=== PATIENT | female | born 1980 | race Hispanic/Latino ===

== ENCOUNTER 2017-08-29 23:46 | Inpatient (IN) | payer OTHER ==
[~2017-08-29] VITALS: Ht 162.6 cm; Wt 79.8 kg
--- NOTE | 2017-08-29 23:57 | ED INFLUENZA/URI COMPLAINT ---
History of Present Illness General Chief Complaint: Fever Stated Complaint: FLU LIKE SYMTPOMS, 33WEEKS Source: patient, family Exam Limitations: no limitations Vital Signs & Intake/Output Vital Signs & Intake/Output Vital Signs Date Time Temp Pulse Resp B/P B/P Pulse O2 O2 Flow FiO2 Mean Ox Delivery Rate 08/30 0050 98.8 128 18 100/50 97 08/29 2348 99.0 128 22 112/56 99 Room Air Room Air ED Intake and Output 08/30 0000 08/29 1200 Intake Total 0 Output Total Balance 0 Intake, Oral 0 Patient 176 lb Weight Allergies Coded Allergies: No Known Allergies (08/29/17) Reconcile Medications No Known Home Medications Triage Note: PT BROUGHT TO ED FROM CBC TO R/U FLU. PT STATES SHE HAS HAD FEVERS, AND BODY ACHES SINCE 0900 TODAY. PT IS 33 WEEKS , AND HAD CONTRACTIONS EARLIER TODAY. DENIES BLOOD OR AND CURRANT CONTRACTIONS Triage Nurses Notes Reviewed? yes Onset: Abrupt Duration: day(s): (3) Timing: recent history Severity: moderate, severe No Modifying Factors: none Associated Symptoms: fever, flank pain, dysuria, urinary frequency : Yes Patient currently breastfeeds: No HPI: This is a 37-year-old female at 33 weeks gestation who presents from labor and delivery with her for chief complaint of cough, fever, body aches which started on August 26. At labor and delivery she was determined not to be active labor and was sent here for evaluation for influenza. She was started on azithromycin yesterday and took a dose today as well. She denies any sick contacts or travel. Patient complains of diffuse abdominal pain, myalgias, cough. No productive sputum. She states her urine has a bad smell to it. Past History Travel History Traveled to [place] past 21 day No Medical History Any Pertinent Medical History? 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 No Review of Systems Review of Systems Constitutional: Reports: chills, fever, malaise, weakness. EENTM: Reports: throat pain. Respiratory: Reports: cough. Cardiovascular: Denies: chest pain, palpitations. GI: Reports: abdominal pain, nausea. Denies: vomiting. Genitourinary: Reports: discharge. Musculoskeletal: Reports: back pain. Skin: Reports: no symptoms. Neurological/Psychological: Denies: anxiety, confusion. Hematologic/Endocrine: Denies: bruising, bleeding, polyuria, polydipsia. Immunologic/Allergic: Denies: splenectomy. All Other Systems: Reviewed and Negative Physical Exam Physical Exam General Appearance: well developed/nourished, alert, awake, anxious, mild distress, moderate distress Head: atraumatic, normal appearance Eyes: Bilateral: normal appearance, PERRL, EOMI. Ears, Nose, Throat: normal ENT inspection, moist mucous membrane, hearing grossly normal, Tympanic normal Neck: normal inspection, supple, full range of motion Respiratory: normal breath sounds, chest non-tender, no respiratory distress Cardiovascular: tachycardia Peripheral Pulses: 2+ radial (R), 2+ radial (L) Gastrointestinal: soft, gravid Back: normal inspection, normal range of motion, CVA tenderness (R), CVA tenderness (L) Extremities: normal inspection, no edema Neurologic/Psych: no motor/sensory deficits, awake, alert, oriented x 3 Skin: intact, normal color, warm/dry Core Measures Sepsis Present: No Sepsis Focused Exam Completed? No Progress Differential Diagnosis: pneumonia, INFLUENZA, VIRAL SYNDROME Plan of Care: Orders Procedure Date/time Status Regular Diet 08/30 B Active ED Holding Orders 08/30 134 Active Admit to inpatient 08/30 134 Active Vital Signs 08/30 134 Active Code Status 08/30 134 Active BLOOD CULTURE 08/30 0106 Active CULTURE,URINE 08/30 5 Active URINALYSIS 08/30 5 Complete COMPREHENSIVE METABOLIC PANEL 08/30 5 Complete CBC WITHOUT DIFFERENTIAL 08/30 5 Complete RAPID VIRAL INFLUENZA A 08/293 Complete Laboratory Tests 08/30/17 0032: Anion Gap 8, Estimated GFR > 60, BUN/Creatinine Ratio 17.5, Glucose 105 H, Calcium 8.4, Total Bilirubin 0.4, AST 15, ALT 25, Alkaline Phosphatase 124, Total Protein 5.9 L, Albumin 3.0 L, Globulin 2.9, Albumin/Globulin Ratio 1.0 L, CBC w Diff MAN DIFF ORDERED, RBC 3.23 L, MCV 85.4, MCH 28.8, RDW 14.4, MPV 7.9, Gran % 95.6 H, Lymphocytes % 3.0 L, Monocytes % 1.3 L, Eosinophils % 0.1 , Basophils % 0, Absolute Granulocytes 11.0 H, Segmented Neutrophils 82 H, Band Neutrophils 15 H, Absolute Lymphocytes 0.3 L, Lymphocytes 1 L, Monocytes 1 L, Absolute Monocytes 0.1, Absolute Eosinophils 0, Absolute Basophils 0, Metamyelocytes 1, Platelet Estimate ADEQUATE, Ovalocytes 1+, PUBS MCHC 33.8 08/30/17 0005: Urine Color YEL, Urine Clarity HAZY H, Urine pH 7.0, Ur Specific [place] 1.010, Urine Protein NEG, Urine Ketones NEG, Urine Nitrite POS H, Urine Bilirubin NEG, Urine Urobilinogen 0.2, Ur Leukocyte Esterase MOD H, Ur Microscopic SEDIMENT EXAMINED, Urine RBC RARE, Urine WBC 15-25 H, Ur Epithelial Cells RARE, Urine Bacteria MANY H, Urine Hemoglobin NEG, Urine Glucose NEG Microbiology 08/30 0125 BLOOD: Blood Culture - RECD 08/30 0106 BLOOD: Blood Culture - ORD 08/30 0005 URINE ROUT: Urine Culture - RECD 08/29 4707 NASOPHARYN: Influenza Virus A & B Rapid Smear - COMP influenza swab negative. patient with clinical exam consistent with pyelonephiritis, b/l flank pain, fever, positive u/a. d/w dr jenkins. patient to be admitted for inpatient management of acute pyelonephritis. Initial ED EKG: none Departure Departure Time of Disposition: 134 Disposition: STILL A PATIENT Condition: Stable Clinical Impression Primary Impression: Fever Referrals: Traci KHOURY,Cecille Sanders (PCP/Family) Departure Forms: Customer Survey General Discharge Information Prescriptions: Current Visit Scripts No Known Home Medications Admission Note Spoke With: Rios Ying MD Documentation of Exam: Documentation of any treatments & extenuating circumstances including Concerns Regarding Discharge (functional status, medication knowledge or non-compliance, living conditions, etc.) that warrant an admission rather than observation: [IV FLUIDS, ANTIPYRETICS, IV ABX, F/U BLOOD AND URINE CULTURES, MONITOR I/O, PAIN CONTROL]
[2017-08-30 00:50] VITALS: BP 100/50
[2017-08-30 00:52] LABS: ABSOLUTE BASOPHIL COUNT 0 /CUMM (0.0-0.2); ABSOLUTE EOSINOPHIL COUNT 0 /CUMM (0.0-0.7); ABSOLUTE LYMPH COUNT 0.3 /CUMM (1.2-3.4); ABSOLUTE MONOCYTE COUNT 0.1 /CUMM (0.10-0.60); BASOPHIL % 0 % (0.0-2.0); EOSINOPHIL % 0.1 % (0-5); GRANULOCYTE % 95.6 % (42.2-75.2); HEMATOCRIT 27.6 % (37-47); MEAN CORPUSCULAR HGB 28.8 PG (27.0-31.0); MEAN CORPUSCULAR HGB CONC 33.8 G/DL (33.0-37.0); MEAN CORPUSCULAR VOLUME 85.4 FL (81.0-99.0); MEAN PLATELET VOLUME 7.9 FL (7.4-10.4); PLATELET COUNT 318 /CUMM (130-400); RBC DISTRIBUTION WIDTH 14.4 % (11.5-14.5); RED BLOOD CELL CT 3.23 /CUMM (4.20-5.40); WHITE BLOOD CELL COUNT 11.6 /CUMM (4.8-10.8)
--- NOTE | 2017-09-04 13:15 | Surgical Discharge Summary ---
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 Maltese ETOH Use: denies use Review of Systems: Chills, shortness of breath, fever, flank pain Hospital Course Course Attending Physician: Rios Ying MD Primary Care Physician: Cecille Aviles MD Hospital Course: The patient was seen in the childbirth center for possible -induced hypertension. She complained of chills and body aches and low-grade fever. Obstetrically she was stable. She was sent to the emergency room for probable influenza virus. She was examined in the emergency room at and the evaluation noted the patient to have pyelonephritis with flank pain and fever. Her white blood cell count was normal and she was started on Rocephin 1 g IV. She was then sent to the childbirth center for continued management. She did well overnight and felt better in the morning. Of note, her grandfather during her admission and she desired to be discharged early the same day. 12 hours later she was given a another dose of Rocephin 1 g IV and then discharged home on Macrobid. Allergies: Coded Allergies: No Known Allergies (08/29/17) Disposition Summary Disposition Principal Diagnosis: Pyelonephritis Additional Diagnosis: Discharge Disposition: home or self care Discharge Instructions General Discharge Information Code Status: Full Code Patient's Diet: Regular Patient's Activity: Pelvic rest Follow-Up Instructions/Appts: 3 day follow-up Dr. Ying
== END 2017-08-30 15:00 | DRG 781 ==
LOC: ERH 23:46 → ERHI 08-30 01:34 → ENRESERV 08-30 02:00 → GNO 08-30 02:20 → CMPBEDREQ 08-30 08:19 → GNO 08-30 15:00
PROVIDERS: Emergency Medicine
DX: O23.03 Infections of kidney in pregnancy, third trimester (principal); Z3A.33 33 weeks gestation of pregnancy
CPT/HCPCS: GNOS; 81001; 87040; 87086; 87804; 87804-59; J0131; J0696; J1200; J7120

== ENCOUNTER 2017-09-29 05:54 | Inpatient (IN) | payer OTHER ==
[~2017-09-29] VITALS: Ht 165.1 cm; Wt 81.6 kg
--- NOTE | 2017-09-29 08:28 | History & Physical ---
General Information and HPI MD Statement: I have seen and personally examined DANIEL GARSIA and documented this H&P. The patient is a 37 year old female at [37] weeks and [5] days gestation who presented with a chief complaint of [labor]. History of Present Illness: This patient is a 37-year-old 3 para 2 LMP 01/08/2017 EDC 10/15/2017 at 37 weeks and 5 days who presents to labor and delivery for the second time this morning complaining of strong uterine contractions and vaginal bleeding. care is remarkable for 2 previous , first for breech and repeat for failed . Her medical history is significant for situs inversus; her 2 previous children were normal and she refuses genetic counseling with this . 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 EENTM: Reports: no symptoms. Cardiovascular: Reports: no symptoms. Respiratory: Reports: no symptoms. GI: Reports: no symptoms. Genitourinary: Reports: see HPI. Musculoskeletal: Reports: no symptoms. Skin: Reports: no symptoms. Neurological/Psychological: Reports: no symptoms. Hematologic/Endocrine: Reports: no symptoms. Immunologic/Allergic: Reports: no symptoms. All Other Systems: Reviewed and Negative Exam & Diagnostic Data Obstetric Exam Wgt Gained During : 40 pounds Pelvimetry: Gynecoid Dilation (cm): 1 Effacement (%): 0 Station: -3 Membranes: intact Fluid: unknown Fundal Height (cm): 40 Multiple Gestation? No Contractions: Every 2 minutes Infant #1 - FHR Baseline: 130 Category: 1 Estimated Weight: 7 pounds Presentation: Cephalic Patient for Induction? No Physical Exam: HEENT: Normocephalic atraumatic Chest: Clear to auscultation bilaterally Cardiovascular: Normal S1, S2 Abdomen: Gravid, cephalic, estimated weight 7 pounds Pelvic: Negative long posterior Extremities: No clubbing cyanosis or edema Neurologic nonfocal Labs Blood Type & Rh: A positive Antibody Screen: Negative Hct/Hgb & Platelets #1: [id number] Hct/Hgb & Platelets #2: [id number] Rubella: Immune VDRL #1: Nonreactive VDRL #2: Nonreactive HbsAg: Negative HIV #1: Negative HIV #2 Units 1 Hr P Group B Strep: Negative Initial Ultrasound: Within normal limits Anatomy Ultrasound: Normal Ultrasound for EFW: 5-09/02 Genetic Testing: Not applicable Last 24 Hrs of Labs/Randy: Microbiology 09/29 0750 URINE ROUT: Urine Culture - COLB Assessment/Plan Assessment/Plan: Previous 2 prodromal labor Plan: Repeat section As Ranked By This Provider Problem List: 1. Previous section Core Measures Venous Thromboembolism VTE Risk Factors / No Mechanical VTE Prophylaxis d/t N/A MechProphylax Ordered No VTE Pharm Prophylaxis d/t Bleeding (Active)
--- NOTE | 2017-09-29 11:42 | Operative Report ---
Operative/Inv Procedure Report Surgery Date: 09/29/17 Name of Procedure: Repeat section and bilateral tubal ligation Pre-Operative Diagnosis: Review in labor; multiparity Post-Operative Diagnosis: Same Estimated Blood Loss: 800cc Surgeon/Fitter Armament: Bruno Lockett MD,Rios Edwards M.D. Anesthesia: spinal Operative/Procedure Note Note: The patient was brought to the operating room placed on the OR table in the sitting position where she underwent spinal anesthetic without complication. She was repositioned into dorsal supine with a block under her right side. Venodyne boots were placed and activated and a Willett catheter was placed into the bladder and drained clear yellow urine. The patient's abdomen was then prepped and draped in usual sterile fashion and tested. A Pfannenstiel skin incision was made through the old scar and taken down to the layer of the fascia. The fascia was nicked in the midline and extended bilaterally. The underlying rectus muscles were off of the ovary running fashion using Metzenbaum scissors. A scalpel was used in the midline to take down the rectus muscles and the peritoneal cavity was entered sharply. This incision was extended bilaterally bluntly. A bladder blade was inserted to protect the bladder from the operative field. A bladder flap was created using the Metzenbaum scissors. A low transverse uterine incision was made with the scalpel and the uterine cavity was entered. Membranes were ruptured revealing clear fluid and a liveborn male was delivered atraumatically and handed off to the waiting cam maker. The placenta was then manually removed intact with three-vessel cord. Uterus was exteriorized and wiped clean with a wet lap sponge. The uterus was closed in 2 layers of 0 Polysorb, the second indicating the first. Attention wasn't paid to the fallopian tubes. The right fallopian tube was grasped with a Aly clamp and elevated. A knuckle of tube was created using 0 Polysorb and 2 free ties. The knuckle of tube was excised and sent to pathology for verification. The ends were coagulated. The left foot fallopian tube was identified and grabbed with a [place] clamp and essentially the same procedure is repeated here with good hemostasis. The abdomen and pelvis were copiously irrigated and the uterus was placed back into the abdominal cavity. All suture sites were once again visualized and noted to be hemostatic. Galdino coagulant powder was placed on the incision of the uterus. The rectus muscles reapproximated in 2 interrupted sutures of 0 Polysorb. The fascia was closed using 0 Polysorb in a running nonlocking fashion. Subcutaneous tissues were then irrigated and closed using 20 plain suture material. The skin was closed using 4-0 Biosyn in a subcuticular fashion using a Juan needle. A dry sterile dressing was applied to the wound. The patient was sent to recovery in good condition. All needle, sponge, and instrument counts were correct at the end of the procedure 4.
[2017-09-29 11:57] VITALS: BP 107/61
--- NOTE | 2017-09-30 08:54 | PN- Post Delivery/GYN ---
Subjective Subjective: pos flatus Review of Systems: flatus Objective Last 24 Hrs of Vital Signs/I&O Vital Signs Date Time Temp Pulse Resp B/P B/P Pulse O2 O2 Flow FiO2 Mean Ox Delivery Rate 09/29 1157 107/61 Physical Exam: incision c/d/i ff ext nt Assessment/Plan Assessment/Plan s/p rc/s btl pod1 stable d/c sweeney advance diet increase activity Problem List: 1. Previous section
[2017-09-30 10:21] LABS: ABSOLUTE BASOPHIL COUNT 0 /CUMM (0.0-0.2); ABSOLUTE EOSINOPHIL COUNT 0 /CUMM (0.0-0.7); ABSOLUTE GRANULOCYTE CT 7.6 /CUMM (1.4-6.5); ABSOLUTE LYMPH COUNT 1.5 /CUMM (1.2-3.4); ABSOLUTE MONOCYTE COUNT 0.6 /CUMM (0.10-0.60); BASOPHIL % 0.2 % (0.0-2.0); EOSINOPHIL % 0.5 % (0-5); GRANULOCYTE % 77.1 % (42.2-75.2); HEMATOCRIT 26.9 % (37-47); MEAN CORPUSCULAR HGB 28.2 PG (27.0-31.0); MEAN CORPUSCULAR VOLUME 85.4 FL (81.0-99.0); MEAN PLATELET VOLUME 8.9 FL (7.4-10.4); PLATELET COUNT 283 /CUMM (130-400); RBC DISTRIBUTION WIDTH 15.1 % (11.5-14.5); RED BLOOD CELL CT 3.14 /CUMM (4.20-5.40); WHITE BLOOD CELL COUNT 9.9 /CUMM (4.8-10.8)
[2017-10-02] MEDS ORDERED: DOCUSATE SODIU100 M3 PO (08:33)
[2017-10-02] MEDS ORDERED: SERTRALINE HCL50 MG PO (08:33)
[2017-10-02] MEDS ORDERED: PERCOCET 5-3251 EACH PO (08:33)
[2017-10-02] MEDS ORDERED: IBUPROFEN800 M1 PO (08:33)
== END 2017-10-02 11:00 | DRG 766 ==
LOC: CBCO 05:54 → GNO 07:25
PROVIDERS: Obstetrics & Gynecology
PROC: 0UB70ZZ Excision of Bilateral Fallopian Tubes, Open Approach (ICD-10-PCS; principal; 2017-09-29)
PROC: 10D00Z1 Extraction of Products of Conception, Low, Open Approach (ICD-10-PCS; principal; 2017-09-29)
DX: O34.211 Maternal care for low transverse scar from previous cesarean delivery (principal); N85.8 Other specified noninflammatory disorders of uterus; Z30.2 Encounter for sterilization; Z3A.37 37 weeks gestation of pregnancy; Z37.0 Single live birth
CPT/HCPCS: GNOS; 87086; 88302; G0463; J0690; J1200; J1885; J2310; J7120

== ENCOUNTER 2017-10-06 01:19 | Inpatient (IN) | payer OTHER ==
[~2017-10-06 01:19] MED LIST: BUTALB-ACETAMI1 EACH PO; DOCUSATE SODIU100 M3 PO; IBUPROFEN800 M1 PO; PERCOCET 5-3251 EACH PO; SERTRALINE HCL50 MG PO
[2017-10-06 02:38] LABS: ABSOLUTE BASOPHIL COUNT 0 /CUMM (0.0-0.2); ABSOLUTE EOSINOPHIL COUNT 0.2 /CUMM (0.0-0.7); ABSOLUTE LYMPH COUNT 1.5 /CUMM (1.2-3.4); ABSOLUTE MONOCYTE COUNT 0.4 /CUMM (0.10-0.60); BASOPHIL % 0.4 % (0.0-2.0); EOSINOPHIL % 2.3 % (0-5); GRANULOCYTE % 70.2 % (42.2-75.2); HEMATOCRIT 29.5 % (37-47); MEAN CORPUSCULAR HGB 27.2 PG (27.0-31.0); MEAN CORPUSCULAR VOLUME 84.8 FL (81.0-99.0); MEAN PLATELET VOLUME 7.8 FL (7.4-10.4); PLATELET COUNT 438 /CUMM (130-400); RED BLOOD CELL CT 3.47 /CUMM (4.20-5.40); WHITE BLOOD CELL COUNT 7.2 /CUMM (4.8-10.8)
--- NOTE | 2017-10-06 08:34 | History & Physical Pre-Op ---
General Information and HPI MD Statement: I have seen and personally examined DANIEL GARSIA and documented this H&P. The patient is a 37 year old F who presented with a patient stated chief complaint of [ -induced hypertension]. History of Present Illness: This patient is a 37-year-old 3 para 3 status post 8 days ago with original complaint of headache. She was seen in [place] ER and given morphine for pain control and discharged home. Later in the day she experienced worsening symptoms of headache and went to [facility] emergency department where she was diagnosed with -induced hypertension . Her sugars were 160/100 with severe headache. She was started on a magnesium bolus at that time and transferred to [facility]. At [facility] her blood pressures were under better control and has not needed any antihypertensive medication. She was started on a 2 g per hour magnesium infusion. Lab results returned with platelet count 438,000 uric acid 5.3 AST 17 AL 233 H&H 9.4 and 29.5 and U PCR 0.4 Allergies/Medications Allergies: Coded Allergies: No Known Allergies (08/29/17) Home Med list Butalb/Acetaminophen/Caffeine (Ywcsfd-Qxifyyvm-Nxtn 50-325-40) 50 MG-325 MG-40 MG TABLET 1 TAB PO Q6P PRN headache Docusate Sodium 100 MG CAPSULE 100 MG PO AT BEDTIME PRN STOOL SOFTENER Ibuprofen 800 MG TABLET 800 MG PO Q6P PRN UTERINE CRAMPING Oxycodone HCl/Acetaminophen (Percocet 5-325 MG Tablet) 5 MG-325 MG TABLET 1 TAB PO Q4P PRN PAIN SCALE 4-6 (MODERATE) Sertraline HCl 50 MG TABLET 50 MG PO DAILY anxiety Past History Medical History Neurological: NONE EENT: NONE Cardiovascular: NONE Respiratory: NONE Gastrointestinal: NONE Hepatic: NONE Renal: NONE Musculoskeletal: NONE Psychiatric: NONE Endocrine: NONE Blood Disorders: NONE 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 EENTM: Denies: blurred vision, visual changes. Cardiovascular: Reports: no symptoms. Respiratory: Reports: no symptoms. GI: Reports: no symptoms. Genitourinary: Reports: no symptoms. Musculoskeletal: Reports: no symptoms. Skin: Reports: no symptoms. Neurological/Psychological: Reports: headache. Hematologic/Endocrine: Reports: no symptoms. Immunologic/Allergic: Reports: no symptoms. All Other Systems: Reviewed and Negative Exam & Diagnostic Data Physical Exam: HEENT: Normocephalic atraumatic Chest: Clear to auscultation bilaterally Cardiovascular: Normal S1-S2 Abdomen: Soft nontender, incision healing well Extremities: No clubbing cyanosis or edema +2 DTR Neurologic: Nonfocal Assessment/Plan Assessment/Plan: -induced hypertension Plan: Magnesium sulfate infusion, start antihypertensive medication As Ranked By This Provider Problem List: 1. induced hypertension,
[2017-10-06] MEDS ORDERED: LABETALOL HCL100 M1 PO (17:49)
[2017-10-06 19:37] VITALS: BP 138/80
== END 2017-10-06 19:30 | DRG 776 ==
LOC: GNO 01:19
PROVIDERS: Obstetrics & Gynecology
DX: O13.5 Gestational [pregnancy-induced] hypertension without significant proteinuria, complicating the puerperium (principal); F41.9 Anxiety disorder, unspecified; R11.0 Nausea; R51 Headache
CPT/HCPCS: GNOS; 36415; 81001; 82570; 87086; J3475; J7120